=== PATIENT | female | born 1975 | race Hispanic/Latino ===

== ENCOUNTER 2017-09-19 18:09 | Emergency (ER) | payer OTHER ==
[~2017-09-19 18:09] MED LIST: AMPI500C12 PO; FLUC200T PO; HYDR-3705 PO; LEVO750T21 PO; LISI10TA7 PO; METF500T6 PO; VOL-PLUS TABLE1 EACH PO; tylenol pm PO
[2017-09-19] MEDS ORDERED: SODIUM CHLORIDE 0.9% 1000ML 1,000 ML IV ONE (18:32)
[2017-09-19] MEDS ORDERED: ONDANSETRON HCL 4 MG/2 ML VIAL ONE ×2 (18:32→19:55)
[2017-09-19] MEDS ORDERED: ACETAMINOPHEN EXTRA STRENGTH 500 MG TABLET ONE (18:44)
[2017-09-19 18:54] LABS: BASOPHILS % (AUTO) 0.2 % (0.0-5.0); EOSINOPHILS % (AUTO) 0.1 % (0.0-8.0); HEMATOCRIT 40.7 % (36-48); LYMPHOCYTES % (AUTO) 20.1 % (21.0-51.0); MEAN CORPUSCULAR HEMOGLOBIN 29.1 pg (27.0-33.0); MEAN CORPUSCULAR HGB CONC 35.2 g/dL (32.0-36.0); MEAN CORPUSCULAR VOLUME 82.6 fL (79-99); MONOCYTES % (AUTO) 4.2 % (3.0-13.0); NEUTROPHILS % (AUTO) 75.4 % (40.0-77.0); PLATELET COUNT (AUTO) 265 K/uL (130-400); RED BLOOD CELL COUNT(AUTO) 4.94 MIL/uL (4.00-5.50); RED CELL DISTRIBUTION WIDTH 13.9 % (11.0-15.5); WHITE BLOOD COUNT (AUTO) 8.1 K/uL (4.8-10.8)
[2017-09-19 19:12] LABS: CREATININE 0.7 mg/dL (0.5-1.5); POTASSIUM 3.4 mmol/L (3.5-5.1)
[2017-09-19 19:18] LABS: ALBUMIN 3.7 g/dL (3.5-5.0); BILIRUBIN,TOTAL 0.9 mg/dL (0.2-1.0); TOTAL PROTEIN, SERUM 8.3 g/dL (6.0-8.3)
[2017-09-19] MEDS ORDERED: HYOSCYAMINE SULFATE 0.125 MG TAB.SUBL SL ONE (20:51)
== END 2017-09-19 22:01 | disposition home or self-care (01) ==
LOC: EDH 18:09
DX: R11.2 Nausea with vomiting, unspecified (principal); R19.7 Diarrhea, unspecified; R50.81 Fever presenting with conditions classified elsewhere
CPT/HCPCS: 36415; 80053; 85025; 87804 ×2; 96361; 96374; 96376; 99284; J2405 ×2; J7030

== ENCOUNTER 2017-12-13 21:22 | Observation (INO) | payer OTHER ==
[~2017-12-13] VITALS: Ht 172.7 cm; Wt 121.7 kg
[2017-12-13] MEDS ORDERED: ACETAMINOPHEN 325 MG TAB ONE (21:42)
[2017-12-13] MEDS ORDERED: SODIUM CHLORIDE 0.9% 1000ML 3,000 ML IV ONE (21:43)
[2017-12-13 21:57] LABS: APPEARANCE,URINE Clear (CLEAR); BILIRUBIN,URINE Negative (NEGATIVE); COLOR,URINE Yellow (YELLOW); GLUCOSE, URINE (UA) Negative (NEGATIVE); KETONES,URINE Negative (NEGATIVE); LEUKOCYTE ESTERASE ,URINE Negative (NEGATIVE); NITRATE,URINE Negative (NEGATIVE); OCCULT BLOOD,URINE Negative (NEGATIVE); PROTEIN,URINE Negative (NEGATIVE); UROBILINOGEN,URINE 0.2 mg/dL (0.2-1.0)
[2017-12-13 22:00] LABS: BASOPHILS % (AUTO) 0.5 % (0.0-5.0); EOSINOPHILS % (AUTO) 0.5 % (0.0-8.0); HEMATOCRIT 36.8 % (36-48); LYMPHOCYTES % (AUTO) 19.2 % (21.0-51.0); MEAN CORPUSCULAR HEMOGLOBIN 28.8 pg (27.0-33.0); MEAN CORPUSCULAR HGB CONC 34.1 g/dL (32.0-36.0); MEAN CORPUSCULAR VOLUME 84.6 fL (79-99); MONOCYTES % (AUTO) 4.3 % (3.0-13.0); NEUTROPHILS % (AUTO) 75.5 % (40.0-77.0); PLATELET COUNT (AUTO) 227 K/uL (130-400); RED BLOOD CELL COUNT(AUTO) 4.35 MIL/uL (4.00-5.50); WHITE BLOOD COUNT (AUTO) 15.7 K/uL (4.8-10.8)
[2017-12-13 22:00] LABS: HCG,QUAL RESULT NEGATIVE (NEGATIVE)
[2017-12-13 22:20] LABS: INR 0.88 (0.85-1.15); PROTHROMBIN TIME 9.3 SEC (9.6-11.6)
[2017-12-13 22:23] LABS: CARBON DIOXIDE 26 mmol/L (21-32); CHLORIDE 103 mmol/L (101-111); CREATININE 0.8 mg/dL (0.5-1.5); GLOMERULAR FILTR. RATE CALC 84 mL/min (>60); GLUCOSE,RANDOM 175 mg/dL (70-105); POTASSIUM 3.9 mmol/L (3.5-5.1); SODIUM SERUM 139 mmol/L (136-145); UREA NITROGEN, BLOOD 9 mg/dL (7-18)
[2017-12-13] MEDS ORDERED: CEFTRIAXONE SODIUM 1 GM ONE (22:25)
[2017-12-13 22:39] LABS: ALANINE AMINOTRANSFERASE 39 U/L (12-78); ALBUMIN 3.3 g/dL (3.5-5.0); ASPARTATE AMINOTRANSFERASE 23 U/L (10-37); BILIRUBIN,TOTAL 0.4 mg/dL (0.2-1.0); CREATINE KINASE MB < 0.5 ng/mL (0.5-3.6); CREATINE KINASE, TOTAL 27 U/L (21-232); MYOGLOBIN 16 ng/mL (10-92); TOTAL PROTEIN, SERUM 7.9 g/dL (6.0-8.3); TROPONIN I < 0.04 ng/mL (0.00-0.06)
[2017-12-13] MEDS ORDERED: IOPAMIDOL-370 75 ML VIAL IV ONE (22:40)
[2017-12-14] VITALS (7 sets, daily range): BP systolic 105–139; BP diastolic 59–77
[2017-12-14] MEDS ORDERED: DEXTROSE 50%-WATER 50 ML DISP.SYRIN IV PRN (02:45)
[2017-12-14] MEDS ORDERED: KETOROLAC TROMETHAMINE 30MG/ML IM PRN (02:45)
[2017-12-14] MEDS ORDERED: ACETAMINOPHEN 325 MG TAB PO PRN (02:45)
[2017-12-14] MEDS ORDERED: ONDANSETRON HCL MDV 20ML 2 MG/ML VIAL IVP PRN (02:45)
[2017-12-14] MEDS ORDERED: GLUCAGON 1MG KIT 1 MG ML IM PRN (02:45)
[2017-12-14] MEDS ORDERED: ACETAMINOPHEN 325 MG TAB ONE (03:55)
[2017-12-14 04:04] LABS: HEMATOCRIT 33.2 % (36-48); MEAN CORPUSCULAR HEMOGLOBIN 29.6 pg (27.0-33.0); MEAN CORPUSCULAR HGB CONC 34.7 g/dL (32.0-36.0); MEAN CORPUSCULAR VOLUME 85.3 fL (79-99); PLATELET COUNT (AUTO) 206 K/uL (130-400); RED BLOOD CELL COUNT(AUTO) 3.88 MIL/uL (4.00-5.50); WHITE BLOOD COUNT (AUTO) 13.9 K/uL (4.8-10.8)
[2017-12-14 04:16] LABS: CREATININE 0.6 mg/dL (0.5-1.5); POTASSIUM 3.6 mmol/L (3.5-5.1)
[2017-12-14] MEDS ORDERED: POTASSIUM CHLORIDE 20 MEQ ERTAB PO PRN (04:30)
[2017-12-14] MEDS ORDERED: POTASSIUM CHLORIDE 10% ELIXIR 20 MEQ/15 ML UDCUP PO PRN (04:30)
[2017-12-14] MEDS ORDERED: POTASSIUM CHLORIDE 20MEQ/100ML 100 ML IV PRN (04:30)
[2017-12-14] MEDS ORDERED: LIDOCAINE HCL-MPF 1% 2ML VIAL IJ PRN (04:30)
[2017-12-14] MEDS: ZOSYN 3.375GM+NS 50ML 50 ML IV SCH ×3 (04:47→20:52)
[2017-12-14] MEDS: INSULIN LISPRO 100 UNIT/ML 3ML SQ SCH ×4 (07:30→20:52)
[2017-12-14] MEDS: INSULIN DETEMIR 10ML 100 UNIT/ML 10ML SQ SCH (09:00)
[2017-12-14] MEDS: ENOXAPARIN SODIUM 40 MG/0.4 ML SYRINGE SQ SCH (10:24)
[2017-12-14] MEDS ORDERED: INSU3INS9 SQ (20:58)
[2017-12-14] MEDS ORDERED: BUDE10.2 IH (21:06)
[2017-12-15 03:23] VITALS: BP 126/64
[2017-12-15] MEDS: ZOSYN 3.375GM+NS 50ML 50 ML IV SCH (04:29)
[2017-12-15 06:53] LABS: HEMATOCRIT 34.7 % (36-48); MEAN CORPUSCULAR HEMOGLOBIN 29.8 pg (27.0-33.0); MEAN CORPUSCULAR HGB CONC 34.9 g/dL (32.0-36.0); MEAN CORPUSCULAR VOLUME 85.3 fL (79-99); PLATELET COUNT (AUTO) 225 K/uL (130-400); RED BLOOD CELL COUNT(AUTO) 4.07 MIL/uL (4.00-5.50); RED CELL DISTRIBUTION WIDTH 13.8 % (11.0-15.5); WHITE BLOOD COUNT (AUTO) 9.9 K/uL (4.8-10.8)
[2017-12-15] MEDS: INSULIN LISPRO 100 UNIT/ML 3ML SQ SCH ×2 (07:07→11:30)
[2017-12-15 07:09] LABS: CREATININE 0.6 mg/dL (0.5-1.5); MAGNESIUM 1.9 mg/dL (1.80-2.40); POTASSIUM 3.9 mmol/L (3.5-5.1)
[2017-12-15] MEDS: INSULIN DETEMIR 10ML 100 UNIT/ML 10ML SQ SCH (07:25)
[2017-12-15 07:54] VITALS: BP 133/79
[2017-12-15 12:15] VITALS: BP 125/59
[2017-12-15] MEDS: ENOXAPARIN SODIUM 40 MG/0.4 ML SYRINGE SQ SCH (14:27)
[2017-12-15] MEDS ORDERED: LEVO500T2 PO ×2 (15:08→16:09)
[2017-12-15 16:00] VITALS: BP 141/75
== END 2017-12-15 18:20 | disposition home or self-care (01) ==
LOC: EDH 21:22 → EDHIP 12-14 00:48 → 3CH 12-14 01:38
PROVIDERS: ADMIT Family Medicine; ATTEND Family Medicine
DX: A41.9 Sepsis, unspecified organism (principal); N39.0 Urinary tract infection, site not specified; I10 Essential (primary) hypertension; E11.9 Type 2 diabetes mellitus without complications; Z90.49 Acquired absence of other specified parts of digestive tract; Z79.899 Other long term (current) drug therapy; E66.01 Morbid (severe) obesity due to excess calories; K76.0 Fatty (change of) liver, not elsewhere classified; Z79.4 Long term (current) use of insulin; Z82.49 Family history of ischemic heart disease and other diseases of the circulatory system; Z87.440 Personal history of urinary (tract) infections
CPT/HCPCS: 36415 ×3; 71046; 74177; 80048 ×2; 80053; 81003; 81025; 82550; 82553; 82948 ×5; 83605 ×3; 83735; 83874; 84484; 85025; 85027 ×2; 85378; 85610; 85730; 87040; 87088; 87633; 87804 ×2; 93005; 96365; 96366 ×2; 96372 ×2; 99285; A4510; G0378 ×42; J0696; J1650 ×2; J1815 ×2; J2543 ×4; J7030; Q9967

== ENCOUNTER 2018-01-30 18:30 | Inpatient (IN) | payer OTHER ==
[~2018-01-30] VITALS: Ht 172.7 cm; Wt 118.3 kg
[~2018-01-30 18:30] MED LIST changes: +BUDE10.2 IH; -FLUC200T PO; +INSU3INS9 SQ; +LEVO500T2 PO; -LEVO750T21 PO; -tylenol pm PO
[2018-01-30] MEDS ORDERED: ONDANSETRON HCL 4 MG/2 ML VIAL ONE (18:52)
[2018-01-30] MEDS ORDERED: ACETAMINOPHEN EXTRA STRENGTH 500 MG TABLET ONE (18:53)
[2018-01-30] MEDS ORDERED: LACTATED RINGERS 1000ML 1,000 ML IV ONE (18:53)
[2018-01-30 18:59] LABS: BASOPHILS % (AUTO) 0.6 % (0.0-5.0); EOSINOPHILS % (AUTO) 0.3 % (0.0-8.0); HEMATOCRIT 41.7 % (36-48); MEAN CORPUSCULAR HGB CONC 34.7 g/dL (32.0-36.0); MEAN CORPUSCULAR VOLUME 83.8 fL (79-99); MONOCYTES % (AUTO) 1.7 % (3.0-13.0); NEUTROPHILS % (AUTO) 89.4 % (40.0-77.0); PLATELET COUNT (AUTO) 240 K/uL (130-400); RED BLOOD CELL COUNT(AUTO) 4.97 MIL/uL (4.00-5.50); WHITE BLOOD COUNT (AUTO) 12.1 K/uL (4.8-10.8)
[2018-01-30 19:05] LABS: APPEARANCE,URINE Clear (CLEAR); BILIRUBIN,URINE Negative (NEGATIVE); COLOR,URINE Yellow (YELLOW); GLUCOSE, URINE (UA) Negative (NEGATIVE); KETONES,URINE Negative (NEGATIVE); LEUKOCYTE ESTERASE ,URINE Negative (NEGATIVE); NITRATE,URINE Negative (NEGATIVE); OCCULT BLOOD,URINE Negative (NEGATIVE); PROTEIN,URINE Negative (NEGATIVE); UROBILINOGEN,URINE 0.2 mg/dL (0.2-1.0)
[2018-01-30 19:12] LABS: CREATININE 0.7 mg/dL (0.5-1.5); POTASSIUM 3.5 mmol/L (3.5-5.1)
[2018-01-30 19:16] LABS: ALBUMIN 3.6 g/dL (3.5-5.0); BILIRUBIN,TOTAL 0.7 mg/dL (0.2-1.0); TOTAL PROTEIN, SERUM 8.2 g/dL (6.0-8.3)
[2018-01-30] MEDS ORDERED: SODIUM CHLORIDE 0.9% 1000ML 1,000 ML IV ONE (20:02)
[2018-01-30] MEDS ORDERED: CEFTRIAXONE SODIUM 1 GM ONE (20:42)
[2018-01-30] MEDS ORDERED: GLUCAGON 1MG KIT 1 MG ML IM PRN (21:00)
[2018-01-30] MEDS ORDERED: ONDANSETRON HCL 4 MG/2 ML VIAL IVP PRN (21:00)
[2018-01-30] MEDS: INSULIN R PO SSI SQ SCH (21:00)
[2018-01-30] MEDS ORDERED: DEXTROSE 50%-WATER 50 ML DISP.SYRIN IV PRN (21:00)
[2018-01-30 21:40] VITALS: BP 107/51
[2018-01-30] MEDS: FAMOTIDINE 20MG TAB 20 MG TAB PO SCH (22:51)
[2018-01-30] MEDS: SODIUM CHLORIDE 0.9% 1000ML 1,000 ML IV SCH (22:52)
[2018-01-30 23:49] VITALS: BP 105/55
[2018-01-31 04:10] VITALS: BP 101/55
[2018-01-31] MEDS: INSULIN R PO SSI SQ SCH ×4 (05:52→21:00)
[2018-01-31 06:11] LABS: HEMATOCRIT 36.7 % (36-48); MEAN CORPUSCULAR HEMOGLOBIN 29.5 pg (27.0-33.0); MEAN CORPUSCULAR HGB CONC 34.8 g/dL (32.0-36.0); MEAN CORPUSCULAR VOLUME 84.7 fL (79-99); PLATELET COUNT (AUTO) 227 K/uL (130-400); RED BLOOD CELL COUNT(AUTO) 4.33 MIL/uL (4.00-5.50); RED CELL DISTRIBUTION WIDTH 13.1 % (11.0-15.5); WHITE BLOOD COUNT (AUTO) 7.3 K/uL (4.8-10.8)
[2018-01-31 06:24] LABS: CREATININE 0.7 mg/dL (0.5-1.5); POTASSIUM 3.2 mmol/L (3.5-5.1)
[2018-01-31] MEDS: SODIUM CHLORIDE 0.9% 1000ML 1,000 ML IV SCH ×2 (06:48→09:23)
[2018-01-31 08:00] VITALS: BP_SYST 107; BP_SYST 108; BP_DIAS 62; BP_DIAS 67
[2018-01-31] MEDS: FAMOTIDINE 20MG TAB 20 MG TAB PO SCH ×2 (09:23→23:37)
[2018-01-31] MEDS: CEFTRIAXONE SODIUM 2 GM VIAL IVP SCH (09:23)
[2018-01-31] MEDS: ACETAMINOPHEN 325 MG TAB PO PRN ×2 (11:26→23:37)
[2018-01-31] MEDS ORDERED: POTASSIUM CHLORIDE 10% ELIXIR 20 MEQ/15 ML UDCUP PO PRN (11:30)
[2018-01-31] MEDS ORDERED: POTASSIUM CHLORIDE 20MEQ/100ML 100 ML IV PRN (11:30)
[2018-01-31] MEDS ORDERED: LIDOCAINE HCL-MPF 1% 2ML VIAL IVP PRN (11:30)
[2018-01-31 11:40] VITALS: BP 120/70
[2018-01-31] MEDS: POTASSIUM CHLORIDE 20 MEQ ERTAB PO PRN ×2 (14:54→17:06)
[2018-01-31 16:00] VITALS: BP 123/72
[2018-01-31 19:00] VITALS: BP 129/85
[2018-02-01] VITALS: BP 122/70
[2018-02-01 04:05] VITALS: BP 120/64
[2018-02-01 05:00] LABS: BASOPHILS % (AUTO) 0.4 % (0.0-5.0); EOSINOPHILS % (AUTO) 0.8 % (0.0-8.0); HEMATOCRIT 34.4 % (36-48); MEAN CORPUSCULAR HEMOGLOBIN 29.6 pg (27.0-33.0); MEAN CORPUSCULAR HGB CONC 35.1 g/dL (32.0-36.0); MEAN CORPUSCULAR VOLUME 84.5 fL (79-99); MONOCYTES % (AUTO) 6.2 % (3.0-13.0); NEUTROPHILS % (AUTO) 56.6 % (40.0-77.0); PLATELET COUNT (AUTO) 193 K/uL (130-400); RED BLOOD CELL COUNT(AUTO) 4.08 MIL/uL (4.00-5.50); RED CELL DISTRIBUTION WIDTH 13.3 % (11.0-15.5); WHITE BLOOD COUNT (AUTO) 6.6 K/uL (4.8-10.8)
[2018-02-01 05:06] LABS: CREATININE 0.5 mg/dL (0.5-1.5); POTASSIUM 3.4 mmol/L (3.5-5.1)
[2018-02-01] MEDS: INSULIN R PO SSI SQ SCH ×4 (06:38→21:00)
[2018-02-01 08:00] VITALS: BP 124/69
[2018-02-01] MEDS: CEFTRIAXONE SODIUM 2 GM VIAL IVP SCH (09:16)
[2018-02-01] MEDS: POTASSIUM CHLORIDE 20 MEQ ERTAB PO PRN ×2 (09:16→14:22)
[2018-02-01] MEDS: FAMOTIDINE 20MG TAB 20 MG TAB PO SCH ×2 (09:16→21:36)
[2018-02-01 11:15] VITALS: BP 126/76
[2018-02-01 16:00] VITALS: BP 132/83
[2018-02-01 19:00] VITALS: BP 147/79
[2018-02-01] MEDS ORDERED: CIPROFLOXACIN HCL 500 MG TABLET PO SCH (20:15)
[2018-02-02] VITALS: BP 125/74
[2018-02-02 04:00] VITALS: BP 124/71
[2018-02-02] MEDS: INSULIN R PO SSI SQ SCH ×2 (06:25→11:30)
[2018-02-02 08:24] VITALS: BP 125/57
[2018-02-02] MEDS: CEFTRIAXONE SODIUM 2 GM VIAL IVP SCH (09:43)
[2018-02-02] MEDS: FAMOTIDINE 20MG TAB 20 MG TAB PO SCH (09:43)
[2018-02-02 12:05] VITALS: BP 126/76
== END 2018-02-02 13:00 | disposition home or self-care (01) | DRG 690 ==
LOC: EDH 18:30 → OBSVTOIN 20:18 → EDHIP 20:18 → 3BH 21:28
PROVIDERS: ADMIT Family Medicine; ATTEND Family Medicine
DX: N39.0 Urinary tract infection, site not specified (principal); A08.11 Acute gastroenteropathy due to Norwalk agent; E11.9 Type 2 diabetes mellitus without complications; E87.6 Hypokalemia; I10 Essential (primary) hypertension; Z83.3 Family history of diabetes mellitus; Z82.49 Family history of ischemic heart disease and other diseases of the circulatory system; Z79.84 Long term (current) use of oral hypoglycemic drugs; Z79.899 Other long term (current) drug therapy; Z90.49 Acquired absence of other specified parts of digestive tract; Z98.51 Tubal ligation status; Z88.8 Allergy status to other drugs, medicaments and biological substances
CPT/HCPCS: 36415; 71046; 76700; 80048; 80053; 81003; 82948; 83605; 85025; 85027; 87040; 87088; 87507; 93005; A4218; J0696; J2405; J7030; J7120

== ENCOUNTER 2020-11-01 04:19 | Emergency (ER) | payer OTHER ==
[~2020-11-01 04:19] MED LIST changes: +LISI10TA24 PO; -LISI10TA7 PO; +METF-444 PO; -METF500T6 PO
[2020-11-01 04:38] LABS: APPEARANCE,URINE Cloudy (CLEAR); BILIRUBIN,URINE Negative (NEGATIVE); COLOR,URINE Yellow (YELLOW); GLUCOSE, URINE (UA) >=1000 mg/dL (NEGATIVE); KETONES,URINE Negative (NEGATIVE); LEUKOCYTE ESTERASE ,URINE Moderate (NEGATIVE); NITRATE,URINE Positive (NEGATIVE); OCCULT BLOOD,URINE Moderate (NEGATIVE); PROTEIN,URINE Trace mg/dL (NEGATIVE); UROBILINOGEN,URINE 0.2 mg/dL (0.2-1.0)
[2020-11-01 04:53] LABS: BASOPHILS % (AUTO) 0.3 % (0.0-5.0); EOSINOPHILS % (AUTO) 0.8 % (0.0-8.0); HEMATOCRIT 40.3 % (36-48); LYMPHOCYTES % (AUTO) 19.2 % (21.0-51.0); MEAN CORPUSCULAR HEMOGLOBIN 28.8 pg (27.0-33.0); MEAN CORPUSCULAR HGB CONC 33.7 g/dL (32.0-36.0); MEAN CORPUSCULAR VOLUME 85.4 fL (79-99); MONOCYTES % (AUTO) 3.5 % (3.0-13.0); NEUTROPHILS % (AUTO) 75.8 % (40.0-77.0); PLATELET COUNT (AUTO) 237 K/uL (130-400); RED BLOOD CELL COUNT(AUTO) 4.72 MIL/uL (4.00-5.50); RED CELL DISTRIBUTION WIDTH 12.6 % (11.0-15.5); WHITE BLOOD COUNT (AUTO) 14.2 K/uL (4.8-10.8)
[2020-11-01 05:02] LABS: CREATININE 0.7 mg/dL (0.5-1.5); POTASSIUM 4.2 mmol/L (3.5-5.1)
[2020-11-01 05:09] LABS: ALBUMIN 3.7 g/dL (3.5-5.0); BILIRUBIN,TOTAL 0.4 mg/dL (0.2-1.0); TOTAL PROTEIN, SERUM 8.5 g/dL (6.0-8.3)
[2020-11-01] MEDS ORDERED: KETOROLAC TROMETHAMINE 30MG/ML ONE (05:42)
[2020-11-01] MEDS ORDERED: ONDANSETRON HCL 4 MG/2 ML VIAL ONE (05:42)
[2020-11-01 06:17] LABS: BACTERIA,URINE Moderate /HPF (None Seen); SQUAMOUS EPITHELIAL CELL,UR Few /HPF (0-2); WBC,URINE 51-100 /HPF (0-1)
[2020-11-01] MEDS ORDERED: IOHEXOL 350 MG/ML 100ML INFUS..BTL IV ONE (06:57)
[2020-11-01] MEDS ORDERED: CEFTRIAXONE SODIUM 2 GM VIAL ONE (07:23)
[2020-11-01] MEDS ORDERED: SODIUM CHLORIDE 0.9% 50 ML IV ONE (07:24)
[2020-11-01] MEDS ORDERED: LACTULOSE 20 GM/30 ML UDCUP ONE (09:35)
== END 2020-11-01 10:13 | disposition home or self-care (01) ==
LOC: EDH 04:19
DX: N39.0 Urinary tract infection, site not specified (principal); K59.00 Constipation, unspecified; E11.9 Type 2 diabetes mellitus without complications; I10 Essential (primary) hypertension; Z98.890 Other specified postprocedural states
CPT/HCPCS: 36415; 74177; 80053; 81001; 81025; 82150; 83690; 85025; 87077; 87088; 87186; 96365; 96375; 99285; J0696; J1885; J2405; Q9967

== ENCOUNTER 2024-04-24 22:54 | Emergency (ER) | payer BC, OTHER ==
[~2024-04-24] VITALS: Ht 172.7 cm; Wt 110.2 kg
[2024-04-24 23:46] LABS: RAPID GROUP A STREP negative (NEGATIVE)
[2024-04-24 23:56] LABS: SARS-CoV-2, RNA, NAAT NEGATIVE SARS CoV-2 (NEGATIVE)
[2024-04-24 23:57] LABS: INFLUENZA TYPE A Negative For Type A (NEGATIVE); INFLUENZA TYPE B Negative For Type B (NEGATIVE)
[2024-04-24 23:58] LABS: BASOPHILS # (AUTO) 0.04 K/uL (0.00-0.20); BASOPHILS % (AUTO) 0.3 % (0.0-5.0); EOSINOPHILS # (AUTO) 0.08 K/uL (0.00-0.70); EOSINOPHILS % (AUTO) 0.6 % (0.0-8.0); HEMATOCRIT 40.5 % (36-48); IMMATURE GRANULOCYTE ABSOLUTE 0.06 K/uL (0-1); LYMPHOCYTES # (AUTO) 1.9 K/uL (1.0-4.8); MEAN CORPUSCULAR HEMOGLOBIN 29.3 pg (27.0-33.0); MEAN CORPUSCULAR HGB CONC 33.6 g/dL (32.0-36.0); MEAN CORPUSCULAR VOLUME 87.3 fL (79-99); MONOCYTES # (AUTO) 0.4 K/uL (0.1-1.0); MONOCYTES % (AUTO) 2.7 % (3.0-13.0); NEUTROPHILS # (AUTO) 10.4 K/uL (1.8-7.7); NEUTROPHILS % (AUTO) 80.9 % (40.0-77.0); PLATELET COUNT (AUTO) 233 K/uL (130-400); RED BLOOD CELL COUNT(AUTO) 4.64 MIL/uL (4.00-5.50); WHITE BLOOD COUNT (AUTO) 12.9 K/uL (4.8-10.8)
[2024-04-25 00:04] LABS: CREATININE 0.8 mg/dL (0.5-1.0); POTASSIUM 3.6 mmol/L (3.5-5.1)
[2024-04-25 00:07] VITALS: BP 112/65; PULSE 105; RESP 20; O2SAT 97
[2024-04-25 00:21] LABS: APPEARANCE,URINE CLEAR (CLEAR); BILIRUBIN,URINE NEGATIVE (NEGATIVE); COLOR,URINE YELLOW (YELLOW); GLUCOSE, URINE (UA) NEGATIVE (NEGATIVE); KETONES,URINE NEGATIVE (NEGATIVE); LEUKOCYTE ESTERASE ,URINE 25 Leu/uL (NEGATIVE); NITRATE,URINE NEGATIVE (NEGATIVE); OCCULT BLOOD,URINE NEGATIVE (NEGATIVE); PH,URINE 5.5 (5.0-8.0); PROTEIN,URINE 10 mg/dL (NEGATIVE); UROBILINOGEN,URINE 0.2 mg/dL (0.2-1.0)
[2024-04-25 00:28] LABS: BACTERIA,URINE RARE /HPF (None Seen); MUCUS,URINE RARE LPF (None Seen); RBC,URINE 0-1 /HPF (0-1); SQUAMOUS EPITHELIAL CELL,UR RARE /HPF (0-2)
[2024-04-25] MEDS ORDERED: ACET-66 PO (00:44)
[2024-04-25] MEDS ORDERED: CEPH500B PO (00:44)
[2024-04-25] MEDS: acetaMINOPHEN 500 MG TABLET PO ONE (00:46)
== END 2024-04-25 01:40 | disposition home or self-care (01) ==
LOC: EDH 22:54
DX: N39.0 Urinary tract infection, site not specified (principal); E11.9 Type 2 diabetes mellitus without complications; Z20.822 Contact with and (suspected) exposure to COVID-19; Z79.899 Other long term (current) drug therapy; Z88.8 Allergy status to other drugs, medicaments and biological substances; Z90.49 Acquired absence of other specified parts of digestive tract; Z98.890 Other specified postprocedural states
CPT/HCPCS: 36415; 80048; 81001; 85025; 87635; 87804; 87880

== ENCOUNTER 2024-09-23 00:06 | Emergency (ER) | payer BC ==
[~2024-09-23] VITALS: Ht 172.7 cm; Wt 108.0 kg
[~2024-09-23 00:06] MED LIST changes: +ACET-66 PO; +CEPH500B PO
[2024-09-23 00:42] LABS: SARS-CoV-2, RNA, NAAT NEGATIVE SARS CoV-2 (NEGATIVE)
[2024-09-23 00:46] LABS: INFLUENZA TYPE A Negative For Type A (NEGATIVE); INFLUENZA TYPE B Negative For Type B (NEGATIVE)
--- NOTE | 2024-09-23 01:32 | ERN ---
ED Note History of Present Illness Stated Complaint: C/O COUGH, FEVER, HEADACHE, CONGESTION Chief Complaint: Cough Time Seen by MD: 00:08 Time Seen by Midlevel: 00:08 Dictation: The patient is a 48-year-old female with a history of diabetes who presents to the emergency department with complaints of nonproductive cough, shortness of breath, fevers, body aches, headache, chest pain onset Saturday. Patient reports family at home with same symptoms. Allergies: Coded Allergies: promethazine (Verified Allergy, 02/22/12) Home Meds Active Scripts Acetaminophen (Tylenol) 500 Mg Tab, 500 MG PO Q6 for 5 Days, #30 TAB Prov:ZAIDA KEARNEY MD 04/25/24 Cephalexin Monohydrate (Keflex) 500 Mg Cap, 500 MG PO TID for 7 Days, #21 CAP Prov:ZAIDA KEARNEY MD 04/25/24 Levofloxacin (Levaquin) 500 Mg Tablet, 500 MG PO DAILY for 10 Days, #10 TAB Prov:MARIO JONES NP 12/15/17 Reported Medications Budesonide/Formoterol Fumarate (Symbicort 160-4.5 Mcg Inhaler) 10.2 Gm Hfa.aer.ad, 1 PUFF IH DAILY PRN for SHORTNESS OF BREATH 12/14/17 Insulin Degludec/Liraglutide (Xultophy 100 Unit-3.6 mg/ml) 3 Ml Insuln.pen, 36 UNITS SQ DAILY PRN for INSULIN SLIDING SCALE, SYRINGE 12/14/17 Lisinopril (Lisinopril) 10 Mg Tablet, 10 MG PO DAILY, TAB 07/11/15 Metformin HCl (Metformin HCl) 500 Mg Tablet, 500 MG PO BIDMEALS, TAB 07/11/15 Hydrocodone/Acetaminophen (Vicodin 5-300 mg Tablet) 1 Each Tablet, 1 EACH PO q6h PRN for PAIN, TAB 04/14/14 Ampicillin Trihydrate (Ampicillin Trihydrate) 500 Mg Capsule, 500 MG PO QID, CAP 04/14/14 Pnv with Ca,No.71/Iron/FA (Vol-Plus Tablet) 1 Each Tablet, 1 EACH PO AM, TAB 04/14/14 Past Medical History Past Medical History: Diabetes-Type II Surgical History: Cholecystectomy, RN Note Reviewed/Agreed w/PFSH: Yes Review of System Dictation Constitutional: Negative for ,chills, and weight loss positive for fever, body aches Eyes: Negative for injury, pain,redness, and discharge ENT: Negative for injury,pain or swelling Cardiovascular: Negative for chest pain, palpitations, and edema Respiratory: Negative for and wheezing, positive for shortness of breath, cough, Abdomen/GI: Negative for abdominal pain, nausea, vomiting, diarrhea, and constipation Back: Negative for injury and pain : Negative for injury, bleeding and discharge MS/Extremity: Negative for injury and deformity Skin: Negative for rash, and discoloration Neuro: Negative for weakness, numbness, tingling, and seizure positive for headache Psych: Negative for suicide ideation, homicidal ideation, and hallucinations Initial Vital Sign VS Vital Signs Date Time Temp Pulse Resp B/P (MAP) Pulse Ox O2 Delivery O2 Flow Rate FiO2 09/23/24 00:08 100.8 130 20 140/82 95 Room Air 09/23/24 02:50 0 21 Physical Exam Dictation Vital Signs reviewed General Appearance: Alert, oriented x 3, no acute distress, well developed, nourished. Head and Face: non-traumatic. Eyes: PERRL, pink conjunctivas, eyelid no trauma, anterior chamber with arcus senilis. Ears: Pinnas intact and no signs of trauma or erythema ear canals clear and no discharge TM no erythema Nose: No discharge, no bleeding. Oropharynx: Mouth normal, tongue pink. pharynx clear,no erythema, tonsils no exudates, no abscesses noted, mucous membrane moist Neck: Supple, non-tender, no thyromegaly, no masses, no JVD, no bruits Breast:Deferred Chest:No tenderness, no crepitus, no paradoxical movement, no retractions Lungs:Clear, well-ventilated, symmetric, no rales, no wheezing, no rhonchi, no stridor, good breath sounds bilaterally Heart: Regular rate, regular rhythm, no murmur, no gallops Vascular: no peripheral edema, Abdomen: Soft, positive bowel sounds, nondistended, no guarding, nontender, no rebound, no masses no hepatomegaly, no splenomegaly, no Bean's sign, no hernias. Rectal: Deferred Genital: Deferred Neurological: Normal speech, motor function intact, sensory function intact Musculoskeletal: Neck nontender, full range of motion, back nontender, full range of motion, Extremities: nontender, full range of motion Skin: Color pink, dry, no turgor, no rash, no lacerations, no abrasions, no contusions. Lymphatic: Deferred Results (Laboratory/Radiology) Laboratory/Radiology Laboratory Tests Test 09/23/24 00:17 09/23/24 03:42 09/23/24 05:08 09/23/24 05:58 Influenza Type A Antigen Negative For Type A Influenza Type B Antigen Negative For Type B SARS-CoV-2, RNA, NAAT NEGATIVE SARS CoV-2 White Blood Count 20.5 K/uL (4.8-10.8) H Red Blood Count 4.36 MIL/uL (4.00-5.50) Hemoglobin 12.8 g/dL (12.0-16.0) Hematocrit 37.0 % (36-48) Mean Corpuscular Volume 84.9 fL (79-99) Mean Corpuscular Hemoglobin 29.4 pg (27.0-33.0) Mean Corpuscular Hemoglobin Concent 34.6 g/dL (32.0-36.0) Red Cell Distribution Width 12.5 % (11.0-15.5) Platelet Count 224 K/uL (130-400) Mean Platelet Volume 11.0 fL (7.5-10.5) H Immature Granulocyte % (Auto) 0.5 % (0-1) Neutrophils (%) (Auto) 84.0 % (40.0-77.0) H Lymphocytes (%) (Auto) 11.9 % (21.0-51.0) L Monocytes (%) (Auto) 2.5 % (3.0-13.0) L Eosinophils (%) (Auto) 0.9 % (0.0-8.0) Basophils (%) (Auto) 0.2 % (0.0-5.0) Neutrophils # (Auto) 17.2 K/uL (1.8-7.7) H Lymphocytes # (Auto) 2.5 K/uL (1.0-4.8) Monocytes # (Auto) 0.5 K/uL (0.1-1.0) Eosinophils # (Auto) 0.19 K/uL (0.00-0.70) Basophils # (Auto) 0.05 K/uL (0.00-0.20) Absolute Immature Granulocyte (auto 0.11 K/uL (0-1) Nucleated Red Blood Cells 0.0 % (0.0-0.19) Sodium Level 132 mmol/L (136-145) L Potassium Level 4.0 mmol/L (3.5-5.1) Chloride Level 97 mmol/L (101-111) L Carbon Dioxide Level 25 mmol/L (21-32) Blood Urea Nitrogen 12 mg/dL (7-18) Creatinine 0.7 mg/dL (0.5-1.0) Glomerular Filtration Rate Calc 107 mL/min (>90) Random Glucose 427 mg/dL (70-105) *H Total Calcium 9.0 mg/dL (8.5-10.1) Total Creatine Kinase 23 U/L (21-232) Troponin I High Sensitivity < 4.0 ng/L (4-50) L B-Type Natriuretic Peptide < 5 pg/mL (0-100) Serum Test, Qualitative NEGATIVE (NEGATIVE) Urine Color LIGHT-YELLOW (YELLOW) Urine Appearance CLEAR (CLEAR) Urine pH 5.0 (5.0-8.0) Urine Specific [place] 1.032 (1.001-1.031) Urine Protein NEGATIVE mg/dL (NEGATIVE) Urine Glucose (UA) >=1000 mg/dL (NEGATIVE) H Urine Ketones 20 mg/dL (NEGATIVE) H Urine Occult Blood NEGATIVE (NEGATIVE) Urine Nitrate NEGATIVE (NEGATIVE) Urine Bilirubin NEGATIVE mg/dL (NEGATIVE) Urine Urobilinogen 0.2 mg/dL (0.2-1.0) Urine Leukocyte Esterase 75 Yahaira/uL (NEGATIVE) H Urine RBC 2-5 /HPF (0-1) H Urine WBC 6-10 /HPF (0-1) H Urine Squamous Epithelial Cells RARE /HPF (0-2) Urine Bacteria RARE /HPF (None Seen) Whole Blood Glucose 399 MG/DL (70-110) H Labs Reviewed?: Yes EKG: (+) rhythm (Sinus tachycardia) EKG Comment: Date: 09/23/2024 Time:0121 Ventricular rate:137 ID interval:148 QRS duration:84 QT/QTc: EKG interpretation: Sinus tachycardia Reviewed by ED Attending no STEMI Ultrasound Comment: Chest x-ray NAD ED Course ED Course Orders Procedure Category Date Status Time Covid Rna Naat LAB 09/23/24 Complete 00:13 Influenza Type A & B, LAB 09/23/24 Complete Rapid 00:13 Cbc With Differential LAB 09/23/24 Complete 00:38 B-Type Natriuretic LAB 09/23/24 Complete Peptide 00:38 Chest 1vw RAD 09/23/24 Taken 00:38 12 Lead Ekg Tracing- EKG 09/23/24 Logged Technical 00:38 0.9%Nacl 1000ml (Ns PHA 09/23/24 Complete 1000ml) 01:00 Basic Metabolic Panel LAB 09/23/24 Complete 00:38 Acetaminophen 500mg PHA 09/23/24 Complete Tab (Tylenol 500mg T 01:00 Ipratropium/Albuterol PHA 09/23/24 Complete Neb (Duoneb) 01:00 Methylprednisolone PHA 09/23/24 Complete Succ 125mg (Solu-Medr 01:00 Testing, LAB 09/23/24 Complete Serum Hcg 00:42 Cardiac Panel LAB 09/23/24 Complete 03:42 Urinalysis LAB 09/23/24 Complete W/Microscopic 04:31 Insulin Regular, PHA 09/23/24 Complete Human 3ml (Humulin R 05:00 0.9%Nacl 1000ml (Ns PHA 09/23/24 Complete 1000ml) 05:00 Ceftriaxone 1g Vial PHA 09/23/24 Complete (Rocephine 1g Inj) 06:00 Bedside Glucose CPOE 09/23/24 Transmitted Fingerstick 05:47 Culture Urine SILVERIO 09/23/24 Logged 05:52 Insulin Regular, PHA 09/23/24 In Process Human 3ml (Humulin R 06:30 Guaifenesin-Codeine PHA 09/23/24 Transmitted Syrup 5ml (Robitussi 06:30 Current Medications Medications (Trade) Dose Ordered Sig/Rosalinda Route PRN Reason Start Time Stop Time Status Last Admin Dose Admin Acetaminophen (TYLenol 500MG TAB) 1,000 mg ONCE ONCE PO 09/23/24 01:00 09/23/24 01:01 DC 09/23/24 02:35 Albuterol (DUOneb) 1 UDVIAL ONCE ONCE IH 09/23/24 01:00 09/23/24 01:01 DC 09/23/24 02:02 Ceftriaxone Sodium (ROCEphine 1G INJ) 1 gm ONCE ONCE IVPB 09/23/24 06:00 09/23/24 06:01 DC 09/23/24 06:05 Insulin Human Regular (humuLIN R 100 UNIT/ML 3ML) 5 unit ONCE ONCE IV 09/23/24 05:00 09/23/24 05:01 DC 09/23/24 04:51 Insulin Human Regular (humuLIN R 100 UNIT/ML 3ML) 5 unit ONCE ONCE IV 09/23/24 06:30 09/23/24 06:31 Methylprednisolone Sodium Succinate (Solu-medROL 125MG) 80 mg ONCE ONCE IVP 09/23/24 01:00 09/23/24 01:01 DC 09/23/24 02:35 Sodium Chloride 1,000 ml @ 0 mls/hr ONCE ONCE IV 09/23/24 01:00 09/23/24 01:01 DC 09/23/24 02:35 Sodium Chloride 1,000 ml @ 0 mls/hr ONCE ONCE IV 09/23/24 05:00 09/23/24 05:01 DC 09/23/24 04:44 Vital Signs Date Time Temp Pulse Resp B/P (MAP) Pulse Ox O2 Delivery O2 Flow Rate FiO2 09/23/24 06:06 98.4 92 18 135/62 98 Room Air* 0 21 09/23/24 02:50 100.6 92 18 145/65 99 Room Air* 0 21 09/23/24 02:35 99.5 09/23/24 02:02 135 20 09/23/24 00:08 100.8 130 20 140/82 95 Room Air Medical Decision Making MDM The patient is a 48-year-old female with a history of diabetes who presents to the emergency department with complaints of nonproductive cough, shortness of breath, fevers, body aches, headache, chest pain onset Saturday. Patient reports family at home with same symptoms. Differential diagnosis: Upper respiratory infection, ACS, pneumonia, pneumothorax, uti, dm hy hyperglycemia Need for hospitalization: Patient does not meet criteria for hospitalization. There are no social concerns with this patient. DX & DISP Disposition: Discharge Departure Impression: Primary Impression: UTI (urinary tract infection) Additional Impression: Diabetes mellitus with hyperglycemia Condition: Stable Assign Patient to: FOLLOW-UP WITH PRIMARY CARE PROVIDER IN 1 TO 2 DAYS. TAKE MEDICATIONS DIRECTED HERE IN THE EMERGENCY ROOM. OKAY TO CONTINUE HOME MEDICATIONS UNLESS OTHERWISE DISCUSSED DURING YOUR VISIT IN THE EMERGENCY ROOM TODAY. RETURN TO [facility] EMERGENCY ROOM IF SYMPTOMS WORSEN OR IF THERE IS NO IMPROVEMENT. CALL 911 IF YOU NEED IMMEDIATE ASSISTANCE. TAKE TYLENOL [id number] NEEDED AND IF NO CONTRAINDICATIONS ARE PRESENT. INCREASE ORAL HYDRATION. A WOUND CULTURE OR URINE CULTURE WAS ORDERED HERE IN THE EMERGENCY ROOM DEPARTMENT PLEASE FOLLOW-UP WITH PRIMARY CARE PROVIDER AND ADVISE THEM TO GET REPEAT PORTS FROM OUR FACILITY. IF YOU HAD ANY LEVY WRAP/SPLINTS THAT WERE APPLIED HERE, PLEASE DO NOT REMOVE THEM UNTIL YOU SEE YOUR PRIMARY CARE OR SPECIALTY. Referrals: Scripts Fluticasone Propionate (Flonase Nasal [place]) 50 Mcg/Actuation [place] 2 SPRAY NS DAILY, #16 GM 0 Refills Prov: ZAIDA KEARNEY MD 09/23/24 Guaifenesin/Codeine Phosphate (Guaifenesin AC Cough Syrup) 10 Mg-100 Mg/5 Ml Liquid 10 ML PO Q4HPRN PRN for cough and congestion for 4 Days, #240 ML 0 Refills Prov: ZAIDA KEARNEY MD 09/23/24 Cephalexin Monohydrate (Keflex) 500 Mg Cap 1 CAP PO TID for 10 Days, #30 CAP 0 Refills Prov: ZAIDA KEARNEY MD 09/23/24 Additional Instructions: FOLLOW-UP WITH PRIMARY CARE PROVIDER IN 1 TO 2 DAYS. TAKE MEDICATIONS DIRECTED HERE IN THE EMERGENCY ROOM. OKAY TO CONTINUE HOME MEDICATIONS UNLESS OTHERWISE DISCUSSED DURING YOUR VISIT IN THE EMERGENCY ROOM TODAY. RETURN TO YOUR NEAREST EMERGENCY ROOM IF SYMPTOMS WORSEN OR IF THERE IS NO IMPROVEMENT. CALL 911 IF YOU NEED IMMEDIATE ASSISTANCE. TAKE TYLENOL [id number] NEEDED AND IF NO CONTRAINDICATIONS ARE PRESENT. INCREASE ORAL HYDRATION. A WOUND CULTURE OR URINE CULTURE WAS ORDERED HERE IN THE EMERGENCY ROOM DEPARTMENT PLEASE FOLLOW-UP WITH PRIMARY CARE PROVIDER AND ADVISE THEM TO GET REPEAT PORTS FROM OUR FACILITY. IF YOU HAD ANY LEVY WRAP/SPLINTS THAT WERE APPLIED HERE, PLEASE DO NOT REMOVE THEM UNTIL YOU SEE YOUR PRIMARY CARE OR SPECIALTY. Referrals: Referrals: DOREEN VILLANUEVA MD (PCP) Time of Disposition: 06:24 BECKA BELTRAN Sep 23, 2024 01:32 ZAIDA KEARNEY MD Sep 23, 2024 06:26
[2024-09-23 02:02] VITALS: PULSE 135; RESP 20
[2024-09-23] MEDS: IpraTROPium/alBUTERol SULFATE 3 ML SOLUTION IH ONE (02:02)
[2024-09-23] MEDS: Solu-medROL 125MG VIAL IVP ONE (02:35)
[2024-09-23] MEDS: acetaMINOPHEN 500 MG TABLET PO ONE (02:35)
[2024-09-23] MEDS: 0.9%NACL 1000ML 1,000 ML IV ONE ×2 (02:35→04:44)
--- NOTE | 2024-09-23 02:40 | NUR ---
ASSUMED PT CARE
[2024-09-23 03:45] VITALS: TEMP 100
[2024-09-23 04:01] LABS: BASOPHILS # (AUTO) 0.05 K/uL (0.00-0.20); BASOPHILS % (AUTO) 0.2 % (0.0-5.0); EOSINOPHILS # (AUTO) 0.19 K/uL (0.00-0.70); EOSINOPHILS % (AUTO) 0.9 % (0.0-8.0); IMMATURE GRANULOCYTE ABSOLUTE 0.11 K/uL (0-1); LYMPHOCYTES # (AUTO) 2.5 K/uL (1.0-4.8); LYMPHOCYTES % (AUTO) 11.9 % (21.0-51.0); MEAN CORPUSCULAR HEMOGLOBIN 29.4 pg (27.0-33.0); MEAN CORPUSCULAR HGB CONC 34.6 g/dL (32.0-36.0); MEAN CORPUSCULAR VOLUME 84.9 fL (79-99); MONOCYTES # (AUTO) 0.5 K/uL (0.1-1.0); MONOCYTES % (AUTO) 2.5 % (3.0-13.0); NEUTROPHILS # (AUTO) 17.2 K/uL (1.8-7.7); PLATELET COUNT (AUTO) 224 K/uL (130-400); RED BLOOD CELL COUNT(AUTO) 4.36 MIL/uL (4.00-5.50); RED CELL DISTRIBUTION WIDTH 12.5 % (11.0-15.5); WHITE BLOOD COUNT (AUTO) 20.5 K/uL (4.8-10.8)
[2024-09-23 04:19] LABS: CARBON DIOXIDE 25 mmol/L (21-32); CHLORIDE 97 mmol/L (101-111); CREATINE KINASE, TOTAL 23 U/L (21-232); CREATININE 0.7 mg/dL (0.5-1.0); GLOMERULAR FILTR. RATE CALC 107 mL/min (>90); SODIUM SERUM 132 mmol/L (136-145); UREA NITROGEN, BLOOD 12 mg/dL (7-18)
[2024-09-23 04:28] LABS: GLUCOSE,RANDOM 427 mg/dL (70-105)
[2024-09-23 04:29] LABS: B-TYPE NATRIURETIC PEPTIDE < 5 pg/mL (0-100)
[2024-09-23] MEDS: INSULIN humuLIN R 100 UNIT/ML 3ML IV ONE ×2 (04:51→06:32)
[2024-09-23 05:50] LABS: APPEARANCE,URINE CLEAR (CLEAR); BACTERIA,URINE RARE /HPF (None Seen); BILIRUBIN,URINE NEGATIVE (NEGATIVE); COLOR,URINE LIGHT-YELLOW (YELLOW); GLUCOSE, URINE (UA) >=1000 mg/dL (NEGATIVE); KETONES,URINE 20 mg/dL (NEGATIVE); LEUKOCYTE ESTERASE ,URINE 75 Leu/uL (NEGATIVE); MUCUS,URINE RARE LPF (None Seen); NITRATE,URINE NEGATIVE (NEGATIVE); OCCULT BLOOD,URINE NEGATIVE (NEGATIVE); PROTEIN,URINE NEGATIVE (NEGATIVE); SQUAMOUS EPITHELIAL CELL,UR RARE /HPF (0-2); UROBILINOGEN,URINE 0.2 mg/dL (0.2-1.0)
[2024-09-23] MEDS: cefTRIAXone 1G VIAL IVPB ONE (06:05)
[2024-09-23] MEDS ORDERED: FLUT16H NS (06:25)
[2024-09-23] MEDS ORDERED: GUAI-899 PO (06:25)
[2024-09-23] MEDS: guaiFENesin-coDEINE 5 ML SYRUP PO ONE (06:31)
[2024-09-23 06:39] VITALS: BP 143/65; PULSE 102; RESP 18; TEMP 98.7; O2SAT 98
--- NOTE | 2024-09-23 07:51 | EKG ---
[facility] Test Date: 2024-09-23 Test Time: 01:21:25 Pat Name: COOPER ZARATE Department: ED Patient [place]: [id number] Room: Gender: Female Nurse Auditor: [id number] : [id number] Requested By: ZAIDA KEARNEY Order Number: [id number] Reading MD: Castro Jacob Measurements Intervals [place] Rate: 137 P: 66 NH: 148 QRS: -22 QRSD: 84 T: 0 QT: 0 QTc: 0 Interpretive Statements Sinus tachycardia Probable left atrial enlargement Low voltage, precordial leads Borderline T abnormalities, diffuse leads Compared to ECG 01/30/2018 18:53:14 Low QRS voltage now present T-wave abnormality now present Short NH interval no longer present Myocardial infarct finding no longer present Poor R-wave progression no longer present ST (T wave) deviation no longer present Possible ischemia no longer present Electronically Signed On 09-23-2024 20:02:20 HYDROELECTRIC SYSTEMS TECHNICIAN by Castro Jacob Please click the below link to view image of tracing.
--- NOTE | 2024-09-23 08:51 | HMCIMG ---
CHEST 1VW REASON: sob COMPARISON: 01/30/2018 FINDINGS: Single view of the chest was obtained. Lungs are clear. Heart size is normal. There is no pulmonary vascular congestion. Mediastinum and bony thorax appear unremarkable. IMPRESSION: 1. Normal single view chest x-ray.
== END 2024-09-23 06:40 | disposition home or self-care (01) ==
LOC: EDH 00:06
DX: N39.0 Urinary tract infection, site not specified (principal); E11.65 Type 2 diabetes mellitus with hyperglycemia; Z79.51 Long term (current) use of inhaled steroids; Z79.899 Other long term (current) drug therapy; Z90.49 Acquired absence of other specified parts of digestive tract; Z20.822 Contact with and (suspected) exposure to COVID-19
CPT/HCPCS: 99284; 96365; 96375; 71045; 87635; 96361; 82550; 84484; 80048; 83880; 84703; 85025; 87086; 87804 ×2; 82948 ×2; 81001; 36415; 96376; 93005; 94640; J1815 ×2; J2919; J0696; 96374

== ENCOUNTER 2025-02-28 18:15 | Emergency (ER) | payer BC ==
[~2025-02-28] VITALS: Ht 172.7 cm; Wt 108.9 kg
[~2025-02-28 18:15] MED LIST changes: +FLUT16H NS; +GUAI-899 PO
[2025-02-28 18:44] LABS: IMMATURE GRANULOCYTE ABSOLUTE 0.04 K/uL (0-1); NUCLEATED RED BLOOD CELLS 0.0 % (0.0-0.19); PLATELET COUNT (AUTO) 271 K/uL (130-400); RED BLOOD CELL COUNT(AUTO) 4.58 MIL/uL (4.00-5.50); RED CELL DISTRIBUTION WIDTH 12.7 % (11.0-15.5); WHITE BLOOD COUNT (AUTO) 11.6 K/uL (4.8-10.8)
[2025-02-28 18:47] LABS: APPEARANCE,URINE CLEAR (CLEAR); GLUCOSE, URINE (UA) >=1000 mg/dL (NEGATIVE); LEUKOCYTE ESTERASE ,URINE NEGATIVE Leu/uL (NEGATIVE); NITRATE,URINE NEGATIVE (NEGATIVE); OCCULT BLOOD,URINE NEGATIVE (NEGATIVE)
[2025-02-28 18:52] LABS: ADD UA MICROSCOPIC YES
[2025-02-28 18:54] LABS: SQUAMOUS EPITHELIAL CELL,UR RARE /HPF (0-2)
[2025-02-28 19:05] LABS: ASPARTATE AMINOTRANSFERASE 17.0 U/L (10-37); CREATININE 0.8 mg/dL (0.5-1.0); GLOMERULAR FILTR. RATE CALC 91.0 mL/min (>90); HCG,QUANTITATIVE 1.0 mIU/mL (0-5); SODIUM SERUM 140.0 mmol/L (136-145); TOTAL PROTEIN, SERUM 7.7 g/dL (6.0-8.3); UREA NITROGEN, BLOOD 11.0 mg/dL (7-18)
[2025-02-28 19:11] LABS: GLUCOSE,RANDOM 427.0 mg/dL (70-105)
[2025-02-28] MEDS: 0.9%NACL 1000ML 1,000 ML IV STA (19:25)
[2025-02-28] MEDS: LIDOCAINE HCL 2% VISCOUS 15 ML UDCUP PO ONE (21:01)
[2025-02-28] MEDS: DICYCLOMINE HCL 10 MG/5 ML ML PO ONE (21:01)
[2025-02-28] MEDS: LACTATED RINGERS 1000ML IV STA (21:01)
[2025-02-28] MEDS: MAG/ALUM/SIMETH 30 ML UDCUP PO ONE (21:01)
--- NOTE | 2025-02-28 21:03 | ERN ---
General Chief Complaint: Abdominal Pain Stated Complaint: ABD PAIN Time Seen by MD: 19:27 History of Present Illness Initial Comments 49-year-old female obese with diabetes comes in with abdominal pain in her upper abdomen and her left lower abdomen. The pain has been persistent and is new. No fevers or chills no diarrhea nausea or vomiting only chronic constipation. Timing/Duration: 1 week, constant Allergies: Coded Allergies: promethazine (Verified Allergy, 02/22/12) Home Meds Active Scripts Fluticasone Propionate (Flonase Nasal [place]) 50 Mcg/Actuation [place], 2 SPRAY NS DAILY, #16 GM 0 Refills Prov:ZAIDA KEARNEY MD 09/23/24 Guaifenesin/Codeine Phosphate (Guaifenesin AC Cough Syrup) 10 Mg-100 Mg/5 Ml Liquid, 10 ML PO Q4HPRN PRN for cough and congestion for 4 Days, #240 ML 0 Refills Prov:ZAIDA KEARNEY MD 09/23/24 Cephalexin Monohydrate (Keflex) 500 Mg Cap, 1 CAP PO TID for 10 Days, #30 CAP 0 Refills Prov:ZAIDA KEARNEY MD 09/23/24 Acetaminophen (Tylenol) 500 Mg Tab, 500 MG PO Q6 for 5 Days, #30 TAB Prov:ZAIDA KEARNEY MD 04/25/24 Cephalexin Monohydrate (Keflex) 500 Mg Cap, 500 MG PO TID for 7 Days, #21 CAP Prov:ZAIDA KEARNEY MD 04/25/24 Levofloxacin (Levaquin) 500 Mg Tablet, 500 MG PO DAILY for 10 Days, #10 TAB Prov:MARIO JONES INTERFACE ANALYST 12/15/17 Reported Medications Budesonide/Formoterol Fumarate (Symbicort 160-4.5 Mcg Inhaler) 10.2 Gm Hfa.aer.ad, 1 PUFF IH DAILY PRN for SHORTNESS OF BREATH 12/14/17 Insulin Degludec/Liraglutide (Xultophy 100 Unit-3.6 mg/ml) 3 Ml Insuln.pen, 36 UNITS SQ DAILY PRN for INSULIN SLIDING SCALE, SYRINGE 12/14/17 Lisinopril (Lisinopril) 10 Mg Tablet, 10 MG PO DAILY, TAB 07/11/15 Metformin HCl (Metformin HCl) 500 Mg Tablet, 500 MG PO BIDMEALS, TAB 07/11/15 Hydrocodone/Acetaminophen (Vicodin 5-300 mg Tablet) 1 Each Tablet, 1 EACH PO q6h PRN for PAIN, TAB 04/14/14 Ampicillin Trihydrate (Ampicillin Trihydrate) 500 Mg Capsule, 500 MG PO QID, CAP 04/14/14 Pnv with Ca,No.71/Iron/FA (Vol-Plus Tablet) 1 Each Tablet, 1 EACH PO AM, TAB 04/14/14 Past Medical History Past Medical History: Diabetes-Type II, GERD, High Cholesterol, Hypertension, Migraines Past Surgical History: Cholecystectomy, BTL, EENTM: (-) eye pain, (-) blurred vision, (-) tearing, (-) double vision, (-) ear pain, (-) ear discharge, (-) nose pain, (-) nose congestion, (-) throat pain, (-) Throat swelling, (-) mouth pain, (-) tooth pain, (-) mouth swelling, (-) other documentation Respiratory: (-) cough, (-) orthopnea, (-) short of breath, (-) stridor, (-) wheezing, (-) other documentation Cardiovascular: (-) chest pain, (-) edema, (-) palpitations, (-) syncope, (-) dyspnea on exertion, (-) other documentation Gastrointestinal/Abdominal: (-) nausea, (-) vomiting, (-) diarrhea, (-) abdominal pain, (-) abdominal distention, (-) constipation, (-) rectal bleeding, (-) dark stool/melena, (-) other documentation Genitourinary: (-) vaginal discharge, (-) vaginal bleeding, (-) dysuria, (-) frequency, (-) hematuria, (-) pain, (-) other documentation Musculoskeletal: (-) Neck pain, (-) back pain, (-) Flank Pain, (-) joint pain, (-) joint swelling, (-) muscle pain, (-) muscle stiffness, (-) gout, (-) other documentation Skin: (-) laceration, (-) contusion, (-) abrasion, (-) abscess, (-) rash, (-) change in color, (-) change in hair, (-) change in nails, (-) diaphoresis, (-) dryness, (-) other documentation Physical Exam General Appearance: (+) no apparent distress Orientation: (+) alert, (+) oriented x 3 Head/Face Trauma: No Eye: bilateral eye normal inspection, bilateral eye PERRL, bilateral eye EOMI Ear, Nose, Throat: (+) hearing grossly normal, (+) normal ENT inspection, (+) moist mucous membraine Neck: (+) normal inspection, (+) supple, (+) full range of motion Respiratory: (+) chest non-tender, (+) lungs clear, (+) well ventilated Heart: (+) regular, (+) no gallop Vascular: (+) no edema, (+) normal peripheral pulse Gastrointestinal: (+) soft, (+) bowel sound present, (+) tender Gastrointestinal Comment Pain in the patient's left lower quadrant is at the border of the left rectus sheath and infraumbilical. The LLQ pain and tenderness is worse on palpation when patient is tenting her stomach muscles and less severe when patient is relaxing her stomach muscles. The subxiphoid pain is constant and does not really elicit much tenderness. Results Laboratory and Microbiology Lab and Micro Result Laboratory Tests Test 02/28/25 18:26 02/28/25 18:32 02/28/25 20:27 Urine Color LIGHT-YELLOW (YELLOW) Urine Appearance CLEAR (CLEAR) Urine pH 5.0 (5.0-8.0) Urine Specific [place] 1.038 (1.001-1.031) Urine Protein NEGATIVE mg/dL (NEGATIVE) Urine Glucose (UA) >=1000 mg/dL (NEGATIVE) H Urine Ketones NEGATIVE mg/dL (NEGATIVE) Urine Occult Blood NEGATIVE (NEGATIVE) Urine Nitrate NEGATIVE (NEGATIVE) Urine Bilirubin NEGATIVE mg/dL (NEGATIVE) Urine Urobilinogen 0.2 mg/dL (0.2-1.0) Urine Leukocyte Esterase NEGATIVE [place]/uL Urine RBC 2-5 /HPF (0-1) H Urine WBC 6-10 /HPF (0-1) H Urine Squamous Epithelial Cells RARE /HPF (0-2) Urine Bacteria None /HPF (None Seen) White Blood Count 11.6 K/uL (4.8-10.8) H Red Blood Count 4.58 MIL/uL (4.00-5.50) Hemoglobin 13.4 g/dL (12.0-16.0) Hematocrit 38.8 % (36-48) Mean Corpuscular Volume 84.7 fL (79-99) Mean Corpuscular Hemoglobin 29.3 pg (27.0-33.0) Mean Corpuscular Hemoglobin Concent 34.5 g/dL (32.0-36.0) Red Cell Distribution Width 12.7 % (11.0-15.5) Platelet Count 271 K/uL (130-400) Mean Platelet Volume 11.0 fL (7.5-10.5) H Immature Granulocyte % (Auto) 0.3 % (0-1) Neutrophils (%) (Auto) 64.3 % (40.0-77.0) Lymphocytes (%) (Auto) 31.5 % (21.0-51.0) Monocytes (%) (Auto) 2.7 % (3.0-13.0) L Eosinophils (%) (Auto) 0.9 % (0.0-8.0) Basophils (%) (Auto) 0.3 % (0.0-5.0) Neutrophils # (Auto) 7.5 K/uL (1.8-7.7) Lymphocytes # (Auto) 3.7 K/uL (1.0-4.8) Monocytes # (Auto) 0.3 K/uL (0.1-1.0) Eosinophils # (Auto) 0.11 K/uL (0.00-0.70) Basophils # (Auto) 0.04 K/uL (0.00-0.20) Absolute Immature Granulocyte (auto 0.04 K/uL (0-1) Nucleated Red Blood Cells 0.0 % (0.0-0.19) Sodium Level 140 mmol/L (136-145) Potassium Level 3.7 mmol/L (3.5-5.1) Chloride Level 101 mmol/L (101-111) Carbon Dioxide Level 27 mmol/L (21-32) Blood Urea Nitrogen 11 mg/dL (7-18) Creatinine 0.8 mg/dL (0.5-1.0) Glomerular Filtration Rate Calc 91 mL/min (>90) Random Glucose 427 mg/dL (70-105) *H Total Calcium 9.1 mg/dL (8.5-10.1) Total Bilirubin 0.3 mg/dL (0.2-1.0) Direct Bilirubin 0.1 mg/dL (0.0-0.3) Aspartate Amino Transf (AST/SGOT) 17 U/L (10-37) Alanine Aminotransferase (ALT/SGPT) 36 U/L (12-78) Alkaline Phosphatase 156 U/L (50-136) H Total Protein 7.7 g/dL (6.0-8.3) Albumin 3.4 g/dL (3.5-5.0) L Lipase 42 U/L (16-77) Human Chorionic Gonadotropin, Quant 1 mIU/mL (0-5) Whole Blood Glucose 161 MG/DL (70-110) H MDM MDM: Differential diagnosis: Upper abdominal pain: GERD, peptic ulcer disease, umbilical hernia, lower abdominal pain: Constipation dehydration muscle strain diverticulitis. Rationale: Tests considered and ordered secondary to shared decision making include: Previous outside records reviewed: Old ER visits. Risk of complication and/or morbidity or mortality of patient management: None Medications-Per medication reconciliation Need for hospitalization: Patient does meet criteria for hospitalization. Need for emergency major/minor surgery: No There are no social concerns with this patient. Prescription drug management Prescriptions will include symptomatic care Patient's prior external medical records from other ER visits were reviewed by me as indicated. Prior testing and results from previous visits were reviewed. Prior tests were taken into account with medical decision making and resource utilization, independent historian/historians were used to obtain complete medical history. I independently interpreted the test that were performed, results were reviewed by me and considered findings on radiology if ordered. Patient's laboratory studies showed a very high glucose which was treated with some IV insulin with a returned to normal in her serum glucose level. Patient does feel slightly better after receiving a L of IV fluids. I will give the patient a GI cocktail and another L of fluids. The GI cocktail did settled down the gastric pain and she does feel better with the 2 L of fluid. And I will discharge her from the ED ED Course Orders Procedure Category Date Status Time Cbc With Differential LAB 02/28/25 Complete 18:22 Basic Metabolic Panel LAB 02/28/25 Complete 18:22 Lipase LAB 02/28/25 Complete 18:22 Hepatic Function Panel LAB 02/28/25 Complete 18:22 Urinalysis Profile LAB 02/28/25 Complete 18:22 Hcg,Quantitative LAB 02/28/25 Complete 18:22 0.9%Nacl 1000ml (Ns PHA 02/28/25 Complete 1000ml) 18:22 Morphine 2mg Syg PHA 02/28/25 Complete (Morphine 2mg Syg) 18:22 Ondansetron 4mg Inj PHA 02/28/25 Complete (Zofran 4mg Inj) 18:22 Culture Urine SILVERIO 02/28/25 In Process 19:04 Insulin Regular, PHA 02/28/25 Complete Human 3ml (Humulin R 19:12 Bedside Glucose CPOE 02/28/25 Transmitted Fingerstick 20:10 Lactated Ringers PHA 02/28/25 Complete 1000ml (Lactated 20:50 Lidocaine Hcl 2% PHA 02/28/25 Complete Viscous (Lidocaine Hcl 21:00 Mag/Alum/Simeth 30ml PHA 02/28/25 Complete (Maalox Plus 30ml) 21:00 Dicyclomine Hcl PHA 02/28/25 Complete (Bentyl 10mg/5ml 21:00 Current Medications Medications (Trade) Dose Ordered Sig/Rosalinda Route PRN Reason Start Time Stop Time Status Last Admin Dose Admin Al Hydroxide/Mg Hydroxide (MAALox PLUS 30ML) 30 ml ONCE ONCE PO 02/28/25 21:00 02/28/25 21:01 DC 02/28/25 21:01 Dicyclomine HCl (Bentyl 10mg/5ml Syrup) 10 mg ONCE ONCE PO 02/28/25 21:00 02/28/25 21:01 DC 02/28/25 21:01 Insulin Human Regular (humuLIN R 100 UNIT/ML 3ML) 8 unit ONCE STAT IV 02/28/25 19:12 02/28/25 19:14 DC 02/28/25 19:30 Lactated Ringer's (Lactated Ringers 1000ml) 1,000 ml BOLUS STAT IV 02/28/25 20:50 02/28/25 20:56 DC 02/28/25 21:01 Lidocaine HCl (Lidocaine HCl 2% Viscous) 10 ml ONCE ONCE PO 02/28/25 21:00 02/28/25 21:01 DC 02/28/25 21:01 Morphine Sulfate (morPHINE 2MG SYG) 2 mg ONCE STAT IVP 02/28/25 18:22 02/28/25 18:27 DC 02/28/25 19:25 Ondansetron HCl (zoFRAN 4MG INJ) 4 mg ONCE STAT IVP 02/28/25 18:22 02/28/25 18:27 DC 02/28/25 19:25 Sodium Chloride 1,000 ml @ 1,000 mls/hr Q1H STAT IV 02/28/25 18:22 02/28/25 19:21 DC 02/28/25 19:25 Vital Signs Date Time Temp Pulse Resp B/P (MAP) Pulse Ox O2 Delivery O2 Flow Rate FiO2 02/28/25 18:19 115 20 148/78 100 Room Air 0 DX & DISP Disposition: Discharge Departure Impression: Primary Impression: Diabetes mellitus with hyperglycemia Additional Impression: Abdominal pain Condition: Stable Additional Instructions: You came to the hospital with the abdominal pain and we discovered that your blood glucose was very high at 500. You may also has been dehydrated. We gave you IV insulin and fluids to help resolve your symptoms. I recommend you see your primary care doctor or manager strategy & account to help better control your blood sugars. If your symptoms return and you can not tolerate food or become severely dehydrated please return Referrals: DOREEN VILLANUEVA MD (PCP) KAITLYN LEVY MD Feb 28, 2025 21:03
[2025-02-28 22:53] VITALS: BP 118/67; PULSE 84; RESP 18; TEMP 98.4; O2SAT 99
== END 2025-02-28 22:54 | disposition home or self-care (01) ==
LOC: EDH 18:15
DX: E11.65 Type 2 diabetes mellitus with hyperglycemia (principal); R10.32 Left lower quadrant pain; E66.9 Obesity, unspecified; E78.00 Pure hypercholesterolemia, unspecified; I10 Essential (primary) hypertension; R10.2 Pelvic and perineal pain; Z79.51 Long term (current) use of inhaled steroids; Z79.899 Other long term (current) drug therapy; Z90.49 Acquired absence of other specified parts of digestive tract; Z98.51 Tubal ligation status
CPT/HCPCS: 99284; 96374; 96375; 80076; 80048; 84702; 83690; 85025; 87086; 82948; 81001; 36415; J1815; J7120; J2270; J7030; J2405